=== PATIENT | male | born 1955 | race Caucasian/White ===

== ENCOUNTER 2017-12-18 13:10 | Inpatient (IN) | payer MEDICAID ==
[~2017-12-18] VITALS: Ht 180.3 cm; Wt 92.8 kg
[2017-12-18] MEDS ORDERED: HYDR-565 PO (14:24)
[2017-12-18 14:42] LABS: BASOPHILS # (AUTO) 0.1 X10'3 (0-0.2); BASOPHILS % (AUTO) 0.9 % (0-1); EOSINOPHILS # (AUTO) 0.2 X10'3 (0-0.9); EOSINOPHILS % (AUTO) 2.1 % (0-6); LYMPHOCYTES # (AUTO) 1.6 X10'3 (1.1-4.8); LYMPHOCYTES % (AUTO) 21.6 % (21-51); MEAN CORPUSCULAR HEMOGLOBIN 31.6 PG (27.0-31.0); MEAN CORPUSCULAR HGB CONC 33.4 % (33.0-36.5); MEAN CORPUSCULAR VOLUME 94.6 FL (78-98); MEAN PLATELET VOLUME 7.3 FL (7.4-10.4); MONOCYTES # (AUTO) 0.6 X10'3 (0-0.9); MONOCYTES % (AUTO) 8.9 % (2-12); NEUTROPHILS # (AUTO) 4.7 X10'3 (1.8-7.7); NEUTROPHILS % (AUTO) 66.5 % (42-75); PRE OP HEMATOCRIT 44.7 % (42.0-52.0); PRE OP HEMOGLOBIN 14.9 g/dL (14.0-17.9); PRE OP PLATELET COUNT 256 X10'3 (140-440); RED BLOOD COUNT 4.72 X10'6 (4.70-6.10); RED CELL DISTRIBUTION WIDTH 13.4 % (11.5-14.5)
[2017-12-18 14:46] LABS: CLARITY,URINE CLEAR (Clear); COLOR,URINE YELLOW (Yellow); GLUCOSE, URINE NEGATIVE (Neg); KETONES,URINE NEGATIVE (Neg); LEUKOCYTE ESTERASE ,URINE SMALL (Neg); NITRITES, URINE NEGATIVE (Neg); OCCULT BLOOD,URINE NEGATIVE (Neg); PH,URINE 7.5 (4.8-8.0); PROTEIN,URINE NEGATIVE (Neg); UROBILINOGEN,URINE 0.2 E.U/dL (0.2-1.0)
[2017-12-18 14:49] LABS: UA COLLECTION TYPE VOIDED
[2017-12-18 14:53] LABS: ALBUMIN 3.7 G/DL (3.4-5.0); ALKALINE PHOSPHATASE 112 IU/L (46-116); BLOOD UREA NITROGEN 20 MG/DL (7-18); CALCIUM 9.4 MG/DL (8.5-10.1); CHLORIDE 102 MMOL/L (99-107); CREATININE 0.87 MG/DL (0.60-1.10); PRE OP ALT 21 U/L (30-65); PRE OP ANION GAP 7 (8-16); PRE OP AST 12 U/L (10-37); PRE OP BILIRUB, TOTAL 0.4 MG/DL (0.0-1.0); PRE OP GLUCOSE 98 MG/DL (70-104); PRE OP POTASSIUM 4.3 MMOL/L (3.4-5.1); PRE OP SODIUM 140 MMOL/L (135-145); TOTAL CARBON DIOXIDE 30.8 MMOL/L (24-32); TOTAL PROTEIN 7.3 G/DL (6.4-8.2); eGFR 90 ML/MIN
[2017-12-18 14:54] LABS: WBC,URINE 0-4 /HPF (0-4)
[2017-12-18 14:55] LABS: BACTERIA,URINE NONE SEEN /HPF (Neg); RBC,URINE 0-2 /HPF (0-2); SQUAMOUS EPITHELIAL CELL,UR FEW /LPF (FEW)
[2017-12-19] VITALS (21 sets, daily range): BP systolic 90–126; BP diastolic 22–79
[2017-12-19] MEDS ORDERED: celeCOXIB 100mg capsule PO ONE (05:30)
[2017-12-19] MEDS ORDERED: famotidine 20mg tablet PO ONE (05:30)
[2017-12-19] MEDS ORDERED: acetaminophen 325mg tablet PO ONE (05:30)
[2017-12-19] MEDS ORDERED: vancomycin inj 1,500 MG in normal saline 300ml IV soln IV ONE (05:30)
[2017-12-19] MEDS ORDERED: gabapentin 300mg capsule PO ONE (05:30)
[2017-12-19] MEDS ORDERED: ceFAZolin 2gm in dextrose, iso 100 ML IV ONE (05:30)
[2017-12-19] MEDS ORDERED: oxyCODONE SR 10mg (sust. release) tab PO ONE (05:30)
[2017-12-19] MEDS ORDERED: acetaminophen 325mg tablet PO PRN (07:10)
[2017-12-19] MEDS ORDERED: oxyCODONE/APAP 10/325mg tablet PO PRN (07:10)
[2017-12-19] MEDS ORDERED: diphenhydrAMINE 25mg capsule PO PRN ×2 (07:10)
[2017-12-19] MEDS ORDERED: magnesium hydroxide 30ml (MOM) UD suspension PO PRN (07:10)
[2017-12-19] MEDS ORDERED: MORPHINE 2MG in 2ml NS syringe IV PRN (07:10)
[2017-12-19] MEDS ORDERED: bisacodyl 10mg suppository rectal RC PRN (07:10)
[2017-12-19] MEDS ORDERED: ondansetron/PF 4mg/2ml inj IV PRN ×3 (07:10→13:30)
[2017-12-19] MEDS: gabapentin 300mg capsule PO SCH ×3 (08:00→22:05)
[2017-12-19] MEDS: multivitamins, therapeutics tablet PO SCH (08:00)
[2017-12-19] MEDS: ascorbic acid 500mg tablet PO SCH ×2 (08:00→22:05)
[2017-12-19] MEDS: aspirin 325mg tablet PO SCH (08:30)
[2017-12-19] MEDS: ringers solution, lacted 1,000 ML IV SCH ×2 (09:34→09:38)
[2017-12-19] MEDS ORDERED: ringers solution, lacted 1,000 ML IV SCH (10:06)
[2017-12-19] MEDS ORDERED: meperidine/PF 50mg/ml syringe IV PRN ×3 (10:10)
[2017-12-19] MEDS ORDERED: morphine 4 MG/ML inj SYRINge IV PRN ×2 (10:10)
[2017-12-19] MEDS ORDERED: proCHLORperazine 10 MG/2 ml inj IV PRN (10:10)
[2017-12-19] MEDS ORDERED: epiNEPHrine 1 mg/ml inj ONE (10:31)
[2017-12-19] MEDS ORDERED: vancomycin 1,000mg inj ONE (10:31)
[2017-12-19] MEDS ORDERED: ketorolac trometh. 30mg/ml inj. ONE (10:31)
[2017-12-19] MEDS ORDERED: cloNIDine hcl/PF 100mcg/ml inj ONE (10:32)
[2017-12-19] MEDS ORDERED: ROPIVAcaine 0.5% (5mg/ml) 30ml vial ONE (10:32)
[2017-12-19] MEDS ORDERED: morphine /PF 1mg/ml 10ml inj. ONE (11:37)
[2017-12-19] MEDS ORDERED: fentaNYL/PF 50MCG/1 ML 2ML syringe ONE (11:37)
[2017-12-19] MEDS ORDERED: MIDAZolam 1mg/ml 10ml vial ONE (11:37)
[2017-12-19] MEDS ORDERED: tranexamic acid inj. 1,000 MG in normal saline 100ml IV soln 90 ML IV ONE (11:40)
[2017-12-19] MEDS ORDERED: BUPIVAcaine/PF 7.5mg/ml (0.75%) 10ml vial ONE (11:42)
[2017-12-19] MEDS ORDERED: naloxone 2mg/2ml inj 1.8 MG in normal saline 500ml IV soln 500 ML IV PRN (13:28)
[2017-12-19] MEDS ORDERED: diphenhydrAMINE 50 mg/ml inj IV PRN (13:30)
[2017-12-19] MEDS: potassium cl 20mEq in 1/2 NS 1,000 ML IV SCH ×3 (15:09→23:09)
[2017-12-19] MEDS ORDERED: ceFAZolin 2gm in dextrose, iso 50 ML IV SCH (16:00)
[2017-12-19] MEDS: ceFAZolin 2gm in dextrose, iso 100 ML IV SCH (16:55)
[2017-12-19] MEDS ORDERED: sennosides 8.6mg tablet PO SCH (21:00)
[2017-12-19] MEDS: oxyCODONE/APAP 10/325mg tablet PO PRN (22:25)
[2017-12-20] MEDS: ceFAZolin 2gm in dextrose, iso 100 ML IV SCH (00:24)
[2017-12-20 02:00] VITALS: BP 98/59
[2017-12-20] MEDS: oxyCODONE/APAP 10/325mg tablet PO PRN ×2 (02:39→10:04)
[2017-12-20 06:00] VITALS: BP 134/85
[2017-12-20 07:34] LABS: BASOPHILS % (AUTO) 0.3 % (0-1); EOSINOPHILS # (AUTO) 0.2 X10'3 (0-0.9); EOSINOPHILS % (AUTO) 2.6 % (0-6); HEMATOCRIT 37.7 % (42.0-52.0); HEMOGLOBIN 12.9 g/dl (14.0-17.9); LYMPHOCYTES # (AUTO) 1.1 X10'3 (1.1-4.8); LYMPHOCYTES % (AUTO) 18.9 % (21-51); MEAN CORPUSCULAR HEMOGLOBIN 32.9 PG (27.0-31.0); MEAN CORPUSCULAR HGB CONC 34.2 % (33.0-36.5); MEAN CORPUSCULAR VOLUME 96.1 FL (78-98); MEAN PLATELET VOLUME 7.2 FL (7.4-10.4); MONOCYTES # (AUTO) 0.6 X10'3 (0-0.9); MONOCYTES % (AUTO) 9.8 % (2-12); NEUTROPHILS # (AUTO) 4.1 X10'3 (1.8-7.7); NEUTROPHILS % (AUTO) 68.4 % (42-75); PLATELET COUNT 213 X10'3 (140-440); RED BLOOD COUNT 3.92 X10'6 (4.70-6.10); RED CELL DISTRIBUTION WIDTH 14.4 % (11.5-14.5)
[2017-12-20 07:44] LABS: ANION GAP 6 (8-16); CHLORIDE 102 MMOL/L (99-107); POTASSIUM 4.5 MMOL/L (3.5-5.1); SODIUM 138 MMOL/L (135-145); TOTAL CARBON DIOXIDE 29.8 MMOL/L (24-32)
[2017-12-20] MEDS: multivitamins, therapeutics tablet PO SCH (07:56)
[2017-12-20] MEDS: gabapentin 300mg capsule PO SCH ×2 (07:56→13:44)
[2017-12-20] MEDS: ascorbic acid 500mg tablet PO SCH (07:56)
[2017-12-20] MEDS: aspirin 325mg tablet PO SCH (07:56)
[2017-12-20] MEDS ORDERED: ASPI-1 PO (08:26)
[2017-12-20 10:00] VITALS: BP 106/50
== END 2017-12-20 13:45 | disposition home or self-care (01) | DRG 301 ==
LOC: EDSTATUS 13:10 → PAS IN 12-19 08:48 → EDSTATUS 12-19 11:30 → ORTHO 4S 12-19 15:37
PROVIDERS: ADMIT Orthopaedic Surgery; ATTEND Orthopaedic Surgery
PROC: 0SR906Z Replacement of Right Hip Joint with Oxidized Zirconium on Polyethylene Synthetic Substitute, Open Approach (ICD-10-PCS; principal; 2017-12-19 11:32)
DX: M16.11 Unilateral primary osteoarthritis, right hip (principal); M87.051 Idiopathic aseptic necrosis of right femur; D62 Acute posthemorrhagic anemia; M25.751 Osteophyte, right hip; Z79.82 Long term (current) use of aspirin; Z87.891 Personal history of nicotine dependence; Z79.899 Other long term (current) drug therapy
CPT/HCPCS: 36415; 72170; 80051; 80053; 81001; 85025; 85610; 85730; 86885; 86900; 86901; 87070; 87088; 93005; 97110; 97116; 97162; 97530; A4615; A6255; A7000; C1758; C1776; J0171; J0690; J0735; J1885; J2250; J2274; J2795; J3010; J3370; J3490; J7030; J7120